=== PATIENT | male | born 1990 ===

== ENCOUNTER 2018-02-07 00:57 | Inpatient (IN) | payer OTHER, MEDICAID, SELFPAY ==
[2018-02-07 02:40] VITALS: BP 123/59; PULSE 79; RESP 20; TEMP 36.6; O2SAT 99; BMI 23.1
--- NOTE | 2018-02-07 03:41 | PC.NURSE ---
Addendum entered by Darius Chino R.N. 02/07/18 05:18: 0415: Dressing removed from left hand, wound cultured X2 sites. Hand gently washed with sterile saline and soap due to large amount of dirt on fingers. Wound re-dressed. Splint removed without moving arm, arm washed and splint re-applied. Splint covered in plastic shower glove, and pt assisted to take a shower, wash his hair while sitting in shower chair. Assisted back to bed. Pt states he feels much better after shower. Original Note: Admission Note: 0240: Pt arrived as direct admission from [facility]. He is alert, oriented X3. He has a saline lock butterfly in his rt forearm with dressing intact. His lt arm is in a splint with dunia wrap, applied by [facility]. He is limping, and states he sprained his lt ankle when he fell inside his RV while trying to stop his dogs from fighting; he states when he fell, a heavy object fell on his left hand and arm, causing a deep laceration to his third finger. Vital signs are stable. He states his pain level is 5/10. Lt arm placed on two pillows for elevation. His fingers are visible, and nailbeds are pink. He does not have bathing facilities in his RV, and the color of his fingers is difficult to determine due to dirt but they are warm to touch. He is unable to move his third and ring finger on his lt hand, and minimal movement to index finger, and 5th finger.
[2018-02-07 05:15] VITALS: BP 124/63; PULSE 72; RESP 16; TEMP 36.2; O2SAT 99
[2018-02-07 06:02] LABS: Add Manual Diff / Slide Review NO; Basophils Percent Auto 0.6 % (0-2); Eosinophils Percent Auto 2.7 % (2-4); Lymphocytes Percent Auto 28.4 % (25-40); Mean Corpuscular HGB Conc 35.1 % (30-36); Mean Corpuscular Hemoglobin 31.5 PG (26-34); Mean Corpuscular Volume 89.8 fL (80-100); Monocytes Percent Auto 10.1 % (3-14); Neutrophils Absolute Auto 7400 /uL (3000-5900); Neutrophils Percent Auto 58.2 % (50-75); Platelet Count 329 X10^3/uL (150-400); Red Blood Cell Count 4.45 X10^6/uL (4.5-5.9); Red Cell Distribution Width 12.8 % (11.6-14.8); White Blood Cell Count 12.7 X10^3/uL (4.5-11.0)
[2018-02-07 06:10] LABS: Alanine Aminotransferase 22 IU/L (21-72); Albumin 3.5 g/dL (3.5-5.0); Albumin Globulin Ratio 1.3 (1.0-2.8); Alkaline Phosphatase 70 U/L (38-126); Aspartate Aminotransferase 17 IU/L (17-59); BUN Creatinine Ratio 21.3 (6-22); Bilirubin Total 0.2 mg/dL (0.2-1.3); Blood Urea Nitrogen 17 mg/dL (9-20); Calcium 8.7 mg/dL (8.4-10.2); Carbon Dioxide 31 mmol/L (22-32); Chloride 104 mmol/L (98-107); Estimated Glomerular Filt Rate > 60.0 mL/min (>60); Globulin 2.6 g/dL (1.7-4.1); Glucose 87 mg/dL (70-100); HEMOLYSIS < 15 (0-50); Potassium 3.9 mmol/L (3.4-5.1); Sodium 144 mmol/L (137-145); Total Protein 6.1 g/dL (6.3-8.2)
--- NOTE | 2018-02-07 09:13 | PC.NURSE ---
Addendum entered by Evelina Delacruz R.N. 02/07/18 11:50: This typewriter aligner received call back from Dr Ortiz re: message left asking if we can feed the patient or if he should be NPO. Dr Ortiz called back and said no need to keep patient NPO. Original Note: Addendum entered by Evelina Delacruz R.N. 02/07/18 11:36: LUE in splint. Fingers warm, nailbeds pink, cap refill <2 sec. Radial pulses+. Patient reports numbness/tingling in all fingers with inability to move 3rd, 4th and 5th fingers. Denies fever/chills. Denies pain, reports dull ache to LUE and L ankle. Understands he can ask for pain meds PRN. Indep in bed. Call light in reach. Original Note: Shift summary: Resting quietly in bed with eyes closed. Respirations regular and unlabored. No s/sx distress or discomfort. Will allow to sleep and complete assessment when awake. Held breakfast until POC clarified by MD. Call light and belongings within reach.
[2018-02-07 10:00] VITALS: BP 119/66; PULSE 72; RESP 16; TEMP 36.7; O2SAT 98
[2018-02-07] MEDS: SODIUM CHLORIDE 0.9% FLUSH 10 ML IV ×2 (10:37→21:35)
[2018-02-07] MEDS: VANCOMYCIN 1,000 MG/200 ML FROZ.PIGGY 200 MG IV ×3 (10:37→21:35)
--- NOTE | 2018-02-07 10:52 | PM.HP.1 ---
History of Present Illness Date Patient Seen: 02/07/18 Time Patient Seen: 10:00 Chief complaint: OPEN FRACTURE Narrative: 27-year-old man who accidentally injured his left hand on February 01, 2018 which was about 6 days ago, when an old sewing machine fell onto his hand. He had a laceration on the left 3rd finger. He noticed significant swelling in the left hand after the accident. He did not seek medical attention. He was trying to do local wound care at home. Yesterday morning he noticed purulent material draining out of the open wound. He called his sister and was brought to the emergency room at [facility] in [place]. X-ray at the [facility] showed comminuted intra-articular fracture at the base of the left 5th metacarpal with displacement. He also was found to have an open wound on the left 3rd finger with purulent drainage. He received 2 g of IV vancomycin. He was transferred to the [facility] due to lack of hospital bed at the outside hospital. Patient denies fevers or chills. He is not able to move his left 3rd 4th and 5th finger. 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 He has a 5-year-old daughter. He quit alcohol drinking about 2 years ago. He smokes about 1/3 a pack of cigarettes a day. 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 He uses marijuana about every other day. He denies IV drug use. Family history: Denies family history of illnesses Meds Home Medications Medication Instructions Recorded Confirmed Type No Known Home Medications 02/07/18 02/07/18 History Allergies Allergy/AdvReac Type Severity Reaction Status Date / Time No Known Allergies Allergy Verified 02/07/18 10:40 Review of Systems Constitutional Comments: Denies fever chills or sweats Cardiovascular Comments: No chest pain or shortness of breath Respiratory Comments: Denies coughing Gastrointestinal Comments: No abdominal pain, nausea or vomiting Genitourinary Comments: Denies dysuria Musculoskeletal Musculoskeletal: Reports as per HPI Neurologic Comments: No headache or confusion Exam Vital Signs (past 8 hours): - 02/07/18 05:15 Temperature 97.1 F L Pulse Rate 72 Respiratory Rate 16 Blood Pressure 124/63 H Pulse Oximetry 99 Narrative Exam Narrative: GENERAL: Well-appearing, well-nourished and in no acute distress. HEENT: Head normocephalic, atraumatic. Eyes pupils equal round NECK: Supple, no JVD, CHEST: Breath sounds equal bilaterally, no wheezes rales or rhonchi. CARDIAC: Regular rate and rhythm without murmurs, rubs or gallops. ABDOMEN: Soft, nontender. Normoactive bowel sounds all 4 quadrants. No guarding or rebound. EXTREMITIES: Left hand and forearm were in splint. On able to move left 3rd 4th and 5th fingers. No swelling on bilateral ankles NEUROLOGICAL: Alert and oriented; Normal muscle strength in right arm and bilateral lower leg. SKIN: Warm, dry, no petechiae, no rashes or lesions. Objective Imaging x-ray of left hand: Radiologist's impression: Comminuted intra-articular fracture at the base of the 5th metacarpal with the medial displacement of the shaft. There is moderate soft tissue swelling over the dorsum of the hand. No radio opaque foreign body Labs Result Diagrams: 02/07/18 05:50 02/07/18 05:50 Labs: Laboratory Results - last 24 hr 02/07/18 02/07/18 05:50 05:50 WBC 12.7 H RBC 4.45 L Hgb 14.0 Hct 40.0 L MCV 89.8 MCH 31.5 MCHC 35.1 RDW 12.8 Plt Count 329 Neut % (Auto) 58.2 Lymph % (Auto) 28.4 [place] % (Auto) 10.1 Eos % (Auto) 2.7 Baso % (Auto) 0.6 Neut # (Auto) 7400 H Sodium 144 Potassium 3.9 Chloride 104 Carbon Dioxide 31 BUN 17 Creatinine 0.80 Estimated GFR > 60.0 BUN/Creatinine Ratio 21.3 Glucose 87 Calcium 8.7 Total Bilirubin 0.2 AST 17 ALT 22 Alkaline Phosphatase 70 Total Protein 6.1 L Albumin 3.5 Globulin 2.6 Albumin/Globulin Ratio 1.3 Assessment & Plan Plan: Assessment/Plan Narrative: 1. Laceration on the left 3rd finger with surrounding cellulitis and possible abscess. The laceration might be involving the extensor tendon. Patient has not been able to extend his 3rd finger. Wound culture was sent. He was started on IV vancomycin. We will consult Dr. Ortiz for her possible surgical I and D. 2. Comminuted intra-articular fracture at the base of the left 5th metatarsal with displacement: Consult Dr. Ortiz for further management. He is currently in a splint. 3. Tobacco abuse: We have discussed the importance of smoking cessation. Patient is not ready to quit at this time.
--- NOTE | 2018-02-07 12:34 | PM.CN ---
History of Present Illness Date Patient Seen: 02/07/18 Time Patient Seen: 12:34 Chief complaint: Finger laceration Reason for consult: Patient with a laceration to his left middle finger Requesting provider: Valeri Vidal Narrative: 27-year-old gentleman who was admitted yesterday due to an infection to his left middle finger. On the 01 of February patient dropped a heavy object on his left hand. This resulted in a base of the 5th metacarpal fracture at the CMC joint as well as a laceration to his left middle finger over the proximal phalanx. Patient did not initially seek any medical care. Yesterday started to notice some purulent drainage from the middle finger and went into [facility] Emergency Room. Patient was then transferred [facility] without any consult of Orthopedics. Patient has been on IV vancomycin. Denies any other injuries to his hand. Main complaint at this point is pain and swelling to the hand and fingers. Patient had x-rays at [facility] which at this point I do not have access to. [facility] Social History household members: none Smoking Status: Current every day smoker alcohol intake: former Meds Home Medications Medication Instructions Recorded Confirmed Type No Known Home Medications 02/07/18 02/07/18 History Allergies Allergy/AdvReac Type Severity Reaction Status Date / Time No Known Allergies Allergy Verified 02/07/18 10:40 Exam Vital Signs (past 8 hours): - 02/07/18 05:15 02/07/18 10:00 Temperature 97.1 F L 98.1 F Pulse Rate 72 72 Respiratory Rate 16 16 Blood Pressure 124/63 H 119/66 Pulse Oximetry 99 98 Narrative Exam Narrative: Patient's dressing was removed. No sign of any open wound anywhere near the fracture site. Patient's fracture involves the 5th CMC joint. Patient has a laceration over the dorsal aspect of the middle finger over the proximal phalanx. Patient has some difficulty moving the 2nd through 5th fingers due to pain and swelling but is able to demonstrate flexion as well as extension at the MCP as well as PIP joints. Still has good overall sensation throughout the fingers. No sign of any ulnar, median, or radial nerve dysfunction. Patient's compartments are soft. With brisk cap refill. No sign of any laceration to the dorsal volar aspect of the hand or the wrist or forearm. Nontender to palpation over the distal radius. Objective Labs Result Diagrams: 02/07/18 05:50 02/07/18 05:50 Labs: Laboratory Results - last 24 hr 02/07/18 02/07/18 05:50 05:50 WBC 12.7 H RBC 4.45 L Hgb 14.0 Hct 40.0 L MCV 89.8 MCH 31.5 MCHC 35.1 RDW 12.8 Plt Count 329 Neut % (Auto) 58.2 Lymph % (Auto) 28.4 [place] % (Auto) 10.1 Eos % (Auto) 2.7 Baso % (Auto) 0.6 Neut # (Auto) 7400 H Sodium 144 Potassium 3.9 Chloride 104 Carbon Dioxide 31 BUN 17 Creatinine 0.80 Estimated GFR > 60.0 BUN/Creatinine Ratio 21.3 Glucose 87 Calcium 8.7 Total Bilirubin 0.2 AST 17 ALT 22 Alkaline Phosphatase 70 Total Protein 6.1 L Albumin 3.5 Globulin 2.6 Albumin/Globulin Ratio 1.3 Assessment & Plan Plan: Assessment/Plan Narrative: Patient with a laceration to his middle finger with some superficial infection. At this point I would recommend continued treatment with IV antibiotics. If the superficial infection does not clear up over the next 24-48 hours we could always discuss possible I and D of the laceration. In regards to his fracture, I do not have access to x-rays but if it did require surgical treatment this would be done on an outpatient basis once he was completely cleared of any residual infection. Patient has absolutely no sign of any open fracture. The location of the fracture and the location of his laceration are quite significantly far apart.
--- NOTE | 2018-02-07 12:42 | P.CONS_ITS ---
History of Present Illness Date Patient Seen: 02/07/18 Time Patient Seen: 12:34 Chief complaint: Finger laceration Reason for consult: Patient with a laceration to his left middle finger Requesting provider: Valeri Vidal Narrative: 27-year-old gentleman who was admitted yesterday due to an infection to his left middle finger. On the 01 of February patient dropped a heavy object on his left hand. This resulted in a base of the 5th metacarpal fracture at the CMC joint as well as a laceration to his left middle finger over the proximal phalanx. Patient did not initially seek any medical care. Yesterday started to notice some purulent drainage from the middle finger and went into [facility] Emergency Room. Patient was then transferred [facility] without any consult of Orthopedics. Patient has been on IV vancomycin. Denies any other injuries to his hand. Main complaint at this point is pain and swelling to the hand and fingers. Patient had x-rays at [facility] which at this point I do not have access to. [facility] Social History household members: none Smoking Status: Current every day smoker alcohol intake: former Meds Home Medications Medication Instructions Recorded Confirmed Type No Known Home Medications 02/07/18 02/07/18 History Allergies Allergy/AdvReac Type Severity Reaction Status Date / Time No Known Allergies Allergy Verified 02/07/18 10:40 Exam Vital Signs (past 8 hours): - 02/07/18 05:15 02/07/18 10:00 Temperature 97.1 F L 98.1 F Pulse Rate 72 72 Respiratory Rate 16 16 Blood Pressure 124/63 H 119/66 Pulse Oximetry 99 98 Narrative Exam Narrative: Patient's dressing was removed. No sign of any open wound anywhere near the fracture site. Patient's fracture involves the 5th CMC joint. Patient has a laceration over the dorsal aspect of the middle finger over the proximal phalanx. Patient has some difficulty moving the 2nd through 5th fingers due to pain and swelling but is able to demonstrate flexion as well as extension at the MCP as well as PIP joints. Still has good overall sensation throughout the fingers. No sign of any ulnar, median, or radial nerve dysfunction. Patient's compartments are soft. With brisk cap refill. No sign of any laceration to the dorsal volar aspect of the hand or the wrist or forearm. Nontender to palpation over the distal radius. Objective Labs Result Diagrams: 02/07/18 05:50 02/07/18 05:50 Labs: Laboratory Results - last 24 hr 02/07/18 02/07/18 05:50 05:50 WBC 12.7 H RBC 4.45 L Hgb 14.0 Hct 40.0 L MCV 89.8 MCH 31.5 MCHC 35.1 RDW 12.8 Plt Count 329 Neut % (Auto) 58.2 Lymph % (Auto) 28.4 [place] % (Auto) 10.1 Eos % (Auto) 2.7 Baso % (Auto) 0.6 Neut # (Auto) 7400 H Sodium 144 Potassium 3.9 Chloride 104 Carbon Dioxide 31 BUN 17 Creatinine 0.80 Estimated GFR > 60.0 BUN/Creatinine Ratio 21.3 Glucose 87 Calcium 8.7 Total Bilirubin 0.2 AST 17 ALT 22 Alkaline Phosphatase 70 Total Protein 6.1 L Albumin 3.5 Globulin 2.6 Albumin/Globulin Ratio 1.3 Assessment & Plan Plan: Assessment/Plan Narrative: Patient with a laceration to his middle finger with some superficial infection. At this point I would recommend continued treatment with IV antibiotics. If the superficial infection does not clear up over the next 24-48 hours we could always discuss possible I and D of the laceration. In regards to his fracture, I do not have access to x-rays but if it did require surgical treatment this would be done on an outpatient basis once he was completely cleared of any residual infection. Patient has absolutely no sign of any open fracture. The location of the fracture and the location of his laceration are quite significantly far apart.
--- NOTE | 2018-02-07 15:29 | CM.DPC ---
02/07: Attempted Initial DCP Eval with patient but he is very drowsy, unable to be fully A&O, so deferred to PENNY Hoyt. She said patient is in ISO r/t unknown if any organism, but as a precaution only as patient has a history of MRSA. Wounds have been cultured and awaiting results. Ortho consult today and determined this is NOT an open fracture but patient is receiving IV ABX Plan: Likely to return to home, but awaiting results of wound culture and plan for ABX after that. DCP to perform complete eval on 02/08. Selam Luis RN
[2018-02-07 15:40] VITALS: BP 107/64; PULSE 71; RESP 17; TEMP 36.3; O2SAT 98
[2018-02-07 19:55] VITALS: BP 101/59; PULSE 64; RESP 17; TEMP 36.4; O2SAT 96
[2018-02-08] VITALS: BP 122/51; PULSE 64; RESP 18; TEMP 36.6; O2SAT 99
--- NOTE | 2018-02-08 02:16 | PC.NURSE ---
Addendum entered by Rhonda Holman R.N. 02/08/18 03:02: PREVIOUS NOTE ENTERED IN ERROR. Original Note: Pt had a liquid bowel movement. Pt accidently peed on floor instead of in toilet so unable to obtain a UA at this point. Will try to obtain next urine sample
[2018-02-08 03:43] VITALS: BP 128/68; PULSE 71; RESP 20; TEMP 36.2; O2SAT 100
[2018-02-08 03:48] LABS: Add Manual Diff / Slide Review NO; Basophils Percent Auto 0.7 % (0-2); Eosinophils Percent Auto 3.3 % (2-4); Hematocrit 46.2 % (41-53); Lymphocytes Percent Auto 28.3 % (25-40); Mean Corpuscular HGB Conc 34.7 % (30-36); Mean Corpuscular Hemoglobin 31.4 PG (26-34); Mean Corpuscular Volume 90.5 fL (80-100); Neutrophils Absolute Auto 5700 /uL (3000-5900); Neutrophils Percent Auto 56.7 % (50-75); Platelet Count 366 X10^3/uL (150-400); Red Blood Cell Count 5.11 X10^6/uL (4.5-5.9); Red Cell Distribution Width 12.7 % (11.6-14.8); White Blood Cell Count 10.1 X10^3/uL (4.5-11.0)
[2018-02-08 04:05] LABS: Vancomycin Trough 14.1 ug/mL (10-20)
[2018-02-08] MEDS: VANCOMYCIN PER PHARMACY 1 REQUEST MISC (04:10)
[2018-02-08] MEDS: VANCOMYCIN 1,000 MG/200 ML FROZ.PIGGY 200 MG IV ×2 (04:12→10:09)
--- NOTE | 2018-02-08 04:20 | PC.NURSE ---
Pt is AxOx3, VSS, no complaints of pain. LUE in splint, CMS+, cap refill <2 sec, has feeling in fingers with periodic numbness. Left hand +1 swelling. Left ankle +1 swelling, pt limps, fractured left ankle. Vanco Trough= 14.1. Vanco dose given. No s/s of acute distress. call [place] in reach
[2018-02-08 07:40] VITALS: BP 112/54; PULSE 70; RESP 18; TEMP 36.5; O2SAT 95
--- NOTE | 2018-02-08 08:44 | PM.PN.1 ---
Subjective Date Patient Seen: 02/08/18 Time Patient Seen: 08:44 Interval history: Patient is a 27-year-old male with a laceration to the 3rd finger with surrounding cellulitis. He is on IV vancomycin. Patient also has a comminuted intra-articular fracture at the base of the 5th metacarpal and is in a split. States pain is tolerable. Can move his 1st 2 fingers but not the remaing fingers at this time. Denies loss of sensation to fingers. Exam Vital Signs (past 8 hours): - 02/08/18 03:43 02/08/18 07:40 Temperature 97.2 F L 97.7 F Pulse Rate 71 70 Respiratory Rate 20 18 Blood Pressure 128/68 H 112/54 L Pulse Oximetry 100 95 Narrative Exam Narrative: Patient in bed. Alert and orient x3. Left arm in a splint. Patient has a laceration over the dorsal aspect of the middle finger over the proximal phalanx. Can move the 1st 2 digits but has difficulty moving the other 3 digits due to swelling and pain. Full sensation in all fingers and good capillary refill. Objective Labs Result Diagrams: 02/08/18 03:30 02/07/18 05:50 Labs: Laboratory Results - last 24 hr 02/08/18 02/08/18 03:30 03:30 WBC 10.1 RBC 5.11 Hgb 16.0 Hct 46.2 MCV 90.5 MCH 31.4 MCHC 34.7 RDW 12.7 Plt Count 366 Neut % (Auto) 56.7 Lymph % (Auto) 28.3 [place] % (Auto) 11.0 Eos % (Auto) 3.3 Baso % (Auto) 0.7 Neut # (Auto) 5700 Vancomycin Trough 14.1 Assessment & Plan Plan: Assessment/Plan Narrative: Dr. Ortiz was consulted and recommends continued treatment with IV antibiotics which is Vancomycin at this time. Awaiting culture results. If this superficial infection does not clear up, he may need and I&D of the laceration. The base of the 5th metacarpal fracture may need surgical repair but will need to wait until any infection has cleared.
[2018-02-08] MEDS: SODIUM CHLORIDE 0.9% FLUSH 10 ML IV ×3 (10:10→20:21)
[2018-02-08 11:00] VITALS: BP 108/60; PULSE 74; RESP 18; TEMP 36.6; O2SAT 96
--- NOTE | 2018-02-08 13:16 | CM.DANOTE ---
DCP Assessment Patient is a 27 year old male who was admitted on 02/07/18 for Infection/Open Fx. Pt has [employer] for insurance and his PCP is not listed. EMR was reviewed. Per MD, pt currently on IV Vanco and may still need I&D if infection continues. 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 Pt states that his sister also lives in [place] and can provide transport at d/c and pt's mother lives in [facility] and has been bedside visiting pt. Pt preference is for IV-Abx to work and be able to d/c home soon with supportive family to assist if needed. Plan: SW to follow closely for possible need of I&D if infection does not improve. Pt has local supportive family. DAVID Martin
--- NOTE | 2018-02-08 13:54 | PM.PN.1 ---
Subjective Date Patient Seen: 02/08/18 Time Patient Seen: 13:30 Interval history: Patient denies fevers or chills. He feels the left hand swelling is improving. He is trying to elevate the left hand and left arm. Exam Vital Signs (past 8 hours): - 02/08/18 07:40 02/08/18 11:00 Temperature 97.7 F 98 F Pulse Rate 70 74 Respiratory Rate 18 18 Blood Pressure 112/54 L 108/60 Pulse Oximetry 95 96 Narrative Exam Narrative: General: Young man in no acute distress Lungs: Clear to auscultation bilaterally Heart: Regular rhythm, no murmur gallop or rub Abdomen: Soft, nontender Extremities: Left arm and hand were in a splint. Neuro: Alert and oriented x3. Objective Labs Result Diagrams: 02/08/18 03:30 02/07/18 05:50 Labs: Laboratory Results - last 24 hr 02/08/18 02/08/18 03:30 03:30 WBC 10.1 RBC 5.11 Hgb 16.0 Hct 46.2 MCV 90.5 MCH 31.4 MCHC 34.7 RDW 12.7 Plt Count 366 Neut % (Auto) 56.7 Lymph % (Auto) 28.3 [place] % (Auto) 11.0 Eos % (Auto) 3.3 Baso % (Auto) 0.7 Neut # (Auto) 5700 Vancomycin Trough 14.1 Assessment & Plan Plan: Assessment/Plan Narrative: 1. Laceration on the left 3rd finger with surrounding cellulitis and possible abscess. The laceration might be involving the extensor tendon. Patient has not been able to extend his 3rd finger. Wound culture grew group a strep. He was initially treated with IV vancomycin. I have talked to Dr. Mahmood, infectious disease specialist over the phone. We will change IV antibiotics to IV ceftriaxone. Keflex and amoxicillin are possible choices when he is changed to oral antibiotics. Appreciate orthopedic consultation. He may need surgical I&D if his infection does not improve over the next few days. 2. Comminuted intra-articular fracture at the base of the left 5th metatarsal with displacement: Appreciate Dr. Ortiz's consultation. He is in the splint. He may need surgical intervention down the road when his infection is under control. 3. Tobacco abuse: We have discussed the importance of smoking cessation. Patient is not ready to quit at this time.
[2018-02-08] MEDS: CEFTRIAXONE 1 GM/50 ML FROZ.PIGGY IV (14:32)
[2018-02-08] MEDS: ENOXAPARIN 40 MG/0.4 ML SYRINGE SUBCUT (14:32)
[2018-02-08 15:20] VITALS: BP 120/62; PULSE 67; RESP 16; TEMP 36.4; O2SAT 67
--- NOTE | 2018-02-08 18:39 | PC.NURSE ---
Addendum entered by Eli Garzon R.N. 02/08/18 21:00: Uneventful evening. Up ad rafita in room. Pt has slept since dinnertime. Denies any discomfort. Left arm remains in soft cast & elevated on pillow. CMS ++ Call light w/in each. continue w/plan of care. Original Note: Pt up independently in room. Denies any discomfort. Left arm in soft cast. CMS intact. HL RFA intact/patent. Call light w/in reach.
[2018-02-08 20:45] VITALS: BP 118/70; PULSE 69; RESP 17; TEMP 36.7; O2SAT 98
[2018-02-09 02:30] VITALS: BP 120/85; PULSE 85; RESP 18; TEMP 36.6; O2SAT 99
--- NOTE | 2018-02-09 02:45 | PC.NURSE ---
Patient asleep since start of shift, now awakened for vitals and assessment. Is alert and oriented. Breath sounds CTA with RA sat of 99%. HRR. Denies nausea. BT present and states he is passing flatus. Denies dysuria, frequency, urgency or incontinence. Independent with mobility. Left UE is in a cast/splint. Is unable to move fingers of left hand but fingers are warm to touch with good capillary refill. Has minimal swelling in left ankle. Does complain of 3/10 pain but declines offer of pain medication. On contact isolation for hx of MRSA.
[2018-02-09 06:00] VITALS: BP 136/57; PULSE 70; RESP 18; TEMP 36.6; O2SAT 100
--- NOTE | 2018-02-09 07:49 | PM.PN.1 ---
Subjective Date Patient Seen: 02/09/18 Time Patient Seen: 08:12 Interval history: Patient has continued to notice improvement to his left hand. Not having as much swelling as before and has noticed more motion to the 3rd through 5th fingers. Exam Vital Signs (past 8 hours): - 02/09/18 02:30 02/09/18 06:00 Temperature 97.9 F 97.9 F Pulse Rate 85 70 Respiratory Rate 18 18 Blood Pressure 120/85 H 136/57 H Pulse Oximetry 99 100 Oxygen Delivery Method Room Air Narrative Exam Narrative: Patient's dressing was removed today. Significant improvement to the laceration of the 3rd finger. No sign of any purulent drainage. Patient has significant improvement in flexion and extension of the 3rd, 4th, and 5th finger. Objective Labs Result Diagrams: 02/08/18 03:30 02/07/18 05:50 Assessment & Plan Plan: Assessment/Plan Narrative: Patient showing good improvements with IV antibiotics. At this point patient should be able to be converted over to oral antibiotics and discharged home. Would recommend patient be set up with outpatient wound care tomorrow. And can follow up in clinic on Tuesday for wound check.
--- NOTE | 2018-02-09 08:16 | PM.PREOP ---
Pre-operative Note Interval Note Pre-op Check: History & Physical Reviewed by Physician, Exam Performed, History & Physical exam performed today and Changes
--- NOTE | 2018-02-09 08:22 | CM.DPC ---
Addendum entered by DAVID Martin 02/09/18 15:33: ADD: Per pt is stable for d/c home today. SW met bedside with pt and he confirmed that he is agreeable to d/c home and states he has running water and a plan to keep his wound clean although SW encouraged possibly staying with family or friend for a few days for additional support and hygiene and pt feels he has a friend that lives near him he can stay with. RN confirming with pt if he would rather have his wound care follow up here in [place] or [place]. Pt's mother or friend to provide transport home today. BF Original Note: DCP Cont: Per Surgeon, pt has significant improvement with the IV-Abx with plan of switching pt to oral medication and outpt follow at the wound clinic when discharged which potentially could be today. Pt had expressed that he would be willing and able to attend follow up appointments here in [place] even though he lives in [place] and would appreciate the continuity of care by the physicians. Plan: SW to follow for likely pt d/c home on oral medications and no need for surgical procedure via family POV. DAVID Martin
[2018-02-09] MEDS: ENOXAPARIN 40 MG/0.4 ML SYRINGE SUBCUT (09:30)
[2018-02-09] MEDS: SODIUM CHLORIDE 0.9% FLUSH 10 ML IV (09:31)
--- NOTE | 2018-02-09 10:58 | PM.DS.1 ---
History of Present Illness Date Patient Seen: 02/09/18 Time Patient Seen: 10:58 Chief complaint: Finger laceration Narrative: 27-year-old man who accidentally injured his left hand on February 01, 2018 which was about 6 days ago, when an old sewing machine fell onto his hand. He had a laceration on the left 3rd finger. He noticed significant swelling in the left hand after the accident. He did not seek medical attention. He was trying to do local wound care at home. Yesterday morning he noticed purulent material draining out of the open wound. He called his sister and was brought to the emergency room at [facility] in [place]. X-ray at the [facility] showed comminuted intra-articular fracture at the base of the left 5th metacarpal with displacement. He also was found to have an open wound on the left 3rd finger with purulent drainage. He received 2 g of IV vancomycin. He was transferred to the [facility] due to lack of hospital bed at the outside hospital. Patient denies fevers or chills. He is not able to move his left 3rd 4th and 5th finger. Discharge Providers Date of admission: 02/07/18 00:57 Consults: 02/07/18 10:49 Consult to Orthopedic Surgery Routine Comment: Consulting Provider: Madhav Ortiz Reason for consultation: possible I&D of left hand abscess and open fracture Has provider been notified: Yes Discharge provider: MARIE Resendiz Summary Discharge Diagnosis: 1. Laceration of left 3rd finger with surrounding cellulitis 2. Comminuted intra-articular fracture at the base of the left 5th metatarsal with displacement 3. Tobacco abuse Hospital Course: This is a 2 day hospitalization for this 27-year-old male patient. He was initially started on IV vancomycin but after talking with infectious disease specialist his IV antibiotic was changed to ceftriaxone. Ortho was consulted and has agreed that it is a superficial infection if it does not clear up he may need I and D of the laceration but at this point appears to be resolving with IV antibiotics. Ortho feels comfortable he can be sent home on oral antibiotics and followed up with wound care tomorrow and a clinic appointment on Tuesday. G stain and culture on the left hand has come back revealing Streptococcus group B and Staphylococcus aureus. After conferring with Dr. Johnston and pharmacy, patient will be placed on 5 days of Bactrim p.o.. Status at Discharge Functional status at discharge: independent ambulation Overall status at discharge: patient is back to baseline Time Spent with Patient Less than 30 minutes Exam Vital Signs (past 8 hours): - 02/09/18 06:00 Temperature 97.9 F Pulse Rate 70 Respiratory Rate 18 Blood Pressure 136/57 H Pulse Oximetry 100 Oxygen Delivery Method Room Air Narrative Exam Narrative: Exam Narrative: General: Young man in no acute distress Lungs: Clear to auscultation bilaterally Heart: Regular rhythm, no murmur gallop or rub Abdomen: Soft, nontender Extremities: Left arm and hand were in a splint recently changed by Orthopedics Neuro: Alert and oriented x3. Objective Labs Result Diagrams: 02/08/18 03:30 02/07/18 05:50 Discharge Plan Discharge Plan Patient Disposition: Home, Self-Care Discharge comment: WILL NEED FOLLOW UP WITH WOUND CARE TOMORROW Discharge Med Rec/Prescriptions Prescriptions: New sulfamethoxazole-trimethoprim [Bactrim DS] 800-160 mg tablet 1 tab PO BID 5 Days Qty: 10 RF: 0 Follow up/Referrals: Madhav Ortiz MD [Physician] - 02/13/18 12:00 am (5-7 days) Provider Discharge Instructions Diet: Regular Activity: TOLERATED Oxygen: ROOM Wound Care Report to your healthcare provider any signs of infection, such as:: chills, fever, night sweats, increased pain and unusual drainage Dressing: KEEP DRY Visit Report/Discharge Packet Instructions: Smoking Cessation Drugs: Nicotine Replacement Products, Smoking Cessation for Older Adults: It's Not Too Late! Visit Report Forms: Stroke Signs & Symptoms Discharge Data Attending Provider: Valeri Vidal Admit Date/Time: 02/07/18 00:57
[2018-02-09] MEDS: CEFTRIAXONE 1 GM/50 ML FROZ.PIGGY IV (12:34)
== END 2018-02-09 13:55 | disposition home or self-care (01) | DRG 383 ==
PROVIDERS: Admitting Provider Internal Medicine; Visit Provider Internal Medicine
DX: L03.012 Cellulitis of left finger (principal); S61.213A Laceration without foreign body of left middle finger without damage to nail, initial encounter; S62.317A Displaced fracture of base of fifth metacarpal bone, left hand, initial encounter for closed fracture; W31.89XA Contact with other specified machinery, initial encounter; F17.210 Nicotine dependence, cigarettes, uncomplicated
CPT/HCPCS: 36415; 36592; 80053; 80202; 85025; 87070; 87075; 87077; 87147; 87186; 87205; 99406; J1650; J3370

== ENCOUNTER → 2018-02-10 16:05 | Outpatient (CLI) | payer OTHER, MEDICAID, SELFPAY ==
[2018-02-07 02:40] VITALS: BMI 23.1
--- NOTE | 2018-02-10 | OV.WND_ITS ---
Progress Note Details Patient Name: Rufino Whiteside Patient Number: [id number] PatientPatientDate: 02/10/2018 Clinician: Azalea Ram Physician / Front End Developer Designer: Francisco Guadarrama SUBJECTIVE Chief Complaint This information was obtained from the patient Trauma to left third finger Allergies NKDA HPI This information was obtained from the patient 02/10/18. Seen by Dr. Guadarrama. The patient's new to our clinic and was recently discharged from [facility] where he was started on Bactrim for and infection of the left 3rd finger associated with a trauma wound that occurred when a sewing machine fell in the hand on February 01. He has an associated fracture of the hand and is schedule to see orthopedics on Tuesday and his wound culture grew MSSA and group A Streptococcus. He feels the pain in the finger and hand has begun to improve and he started taking his Bactrim this morning. Family History This information was obtained from the patient Cancer - Maternal Grandparents, Heart Disease - Maternal Grandparents, Lung Disease - Maternal Grandparents Social History This information was obtained from the patient Alcohol Use - Occasional, Caffeine Use - 3 drinks a day, Children - 1, Illicit Drug Use - Canabis , Lives in - , Marital Status - Single, Occupation - lee , Tobacco Use - 08/03 ppd, Complaints and Symptoms This information was obtained from the patient Patient complains of: General Notes: I have reviewed and concur with the Review of Systems and Past Family Social History documents completed by the clinician, I have reviewed and concur with the Wound Assessment document completed by the clinician Integumentary (Hair/Skin/Nails): Open Sore Musculoskeletal: Joint Swelling Prior Wound History: Drainage, Erythema, Pain Patient denies complaints or symptoms related to: Constitutional Symptoms (General Health): Chills, Fever Ear/Nose/Mouth/Throat: Hearing Loss / Aid Hematologic/Lymphatic: Bleeding / Clotting Disorders, Bleeding Tendency Psychiatric: Memory Loss Respiratory: Shortness of Breath General Notes: Up to date Medications Bactrim DS 800 mg-160 mg tablet oral tablet oral twice daily for 5 Days Bactrim DS 800 mg-160 mg tablet oral tablet oral twice daily for 5 days for infected wound OBJECTIVE Constitutional BP elevated; Low grade fever; Alert and in no distress. Well developed. Alert. Clean appearing.. Height/Length: 73 in (185.42 cm), Weight: 175 lbs (79.55 kgs), BMI: 23.1, Temperature: 99.3 ?F (37.39 ?C), Pulse: 105 bpm, Respiratory Rate: 16 breaths/ min, Blood Pressure: 146/93 mmHg, Pulse Oximetry: 98 %. Ears, Nose, Mouth, and Throat: No clinically significant hearing loss on informal examination. Respiratory: No respiratory distress. Even respirations and without use of accessory muscles.. Integumentary (Hair, Skin) Mild periwound erythema without warmth. Refer to appropriate clinician wound documentation for this visit; approx 3cm flap wound overlying dorsum of proximal left 3rd finger with minimal purulent drainage; small superfical wound over dorsum of proximal left 4th finger. Wound #1 Left Finger - third is an acute Full Thickness Trauma Wound and has received a status of Not Healed. Initial wound encounter measurements are 1.5cm length x 0.4cm width x 0.2cm depth, with an area of 0.6 sq cm and a volume of 0.12 cubic cm. No tunneling has been noted. No sinus tract has been noted. No undermining has been noted. There is a moderate amount of sero-sanguineous drainage noted which has no odor. The patient reports a wound pain of level 3/10. The wound margin is attached. Wound bed has Yes epithelialization, No eschar, Yes slough, Yes bright red, pink, firm granulation. The periwound skin texture is normal. The periwound skin moisture is normal. The periwound skin color is normal. The temperature of the periwound skin is WNL. Periwound skin presents with s/s of infection. Confirmation Description and Treatment Plan is: Confirmed Local, Systemic Antibiotics Prescribed. Local Pulse is N/A. Neurological: Cranial nerves grossly intact with symmetric function normal by informal observation.. ASSESSMENT Active Problems ICD-10 (Encounter Diagnosis) S61.203D - Unspecified open wound of left middle finger without damage to nail, subsequent encounter (Encounter Diagnosis) B95.61 - Methicillin susceptible Staphylococcus aureus infection as the cause of diseases classified elsewhere (Encounter Diagnosis) B95.0 - Streptococcus, group A, as the cause of diseases classified elsewhere PLAN Wound Orders: Wound #1 Left Finger - third Cleanser Cleanse Wound: - Normal saline in clinic. May Shower. - Please avoid getting tap water in wound or on dressing or wrap. Topical Treatments Antibiotic/Antimicrobial Ointment/Cream. - Gentamicin Dressings Primary dressing: - Foam Change Dressing: - At next visit Additional Orders: Follow-Up Appointments Return Appointment: - - Tuesday Other information: If you develop fever, chills, increased pain, drainage, redness or swelling please call our office. If after hours, respond to the ER. Should you experience any significant changes in your wound(s) or have any questions regarding your home care instructions please contact the wound center @ [phone]. If after hours, contact your primary care physician or go to the hospital emergency room. Scribing Attestation I attest, as the nurse, that I scribed these orders for the physician. Medications prescribed: Bactrim DS - oral 800 mg-160 mg tablet twice daily for 5 days for infected wound starting 02/10/2018 I've reviewed the clinician's documentation and agree with the evaluation and plan as written. Also, I've continued the patient on an additional 5 days of Bactrim, bringing his total to 10 days, and we'll see him after his orthopedic appointment early next week. Electronic Signature(s) Signed By: Date: Francisco Guadarrama MD 02/10/2018 13:30:07 Entered By: Francisco Guadarrama on 02/10/2018 13:28:56
== END ==
PROVIDERS: Referring Provider Internal Medicine; Visit Provider Internal Medicine
DX: S61.203D Unspecified open wound of left middle finger without damage to nail, subsequent encounter (principal); B95.61 Methicillin susceptible Staphylococcus aureus infection as the cause of diseases classified elsewhere; B95.0 Streptococcus, group A, as the cause of diseases classified elsewhere
CPT/HCPCS: 99213